=== PATIENT | male | born 1975 | race African-American/Black ===

== ENCOUNTER 2017-06-14 13:45 | Inpatient (IN) | payer OTHER ==
[2017-06-14 14:48] VITALS: BMI 21.7
[2017-06-14] MEDS ORDERED: MENTHOL/PHENOL 1 EACH UD MM PRN (15:19)
[2017-06-14] MEDS ORDERED: P-EPHED 60MG/TRIPROLIDI 2.5MG TABLET PO PRN (15:19)
[2017-06-14] MEDS ORDERED: MAG HYDROX/AL HYDROX/SIMETH 30 ML UNIT-DOSE CUP PO PRN (15:19)
[2017-06-14] MEDS ORDERED: IBUPROFEN 400 MG TABLET (FP) PO PRN (15:19)
[2017-06-14] MEDS ORDERED: LOPERAMIDE HCL 2 MG CAPSULE PO PRN (15:19)
[2017-06-14] MEDS ORDERED: guaiFENesin/D-METHORPHAN HB 10 ML UNIT-DOSE CUPS PO PRN (15:19)
[2017-06-14] MEDS ORDERED: MAGNESIUM HYDROX 2400MG/30ML ORAL SUSPENSION 30 ML CUP PO PRN (15:19)
[2017-06-14] MEDS ORDERED: MAGNESIUM CITRATE 300 ML BOTTLE PO PRN (15:19)
--- NOTE | 2017-06-14 15:21 | HP ---
JULIEN GARCIA Rehab Assess/Revision - Admission History Admitted to Rehab from: [facility] Date of Admission to Rehab: 06/14/17 - Vital signs Vital Signs: Vital Signs Period Temp Pulse Resp BP Sys/Riojas Pulse Ox Last 24 Hr 97.7 F-97.7 F 70-70 18-18 130-130/70-70 - Findings Detox History & Physical reviewed: Yes Concur with findings: Yes Inpatient Rehab Admission - Initial Determination Are CD services needed?: Yes Free of communicable disease: Yes Not in need of hospitalization: Yes - Rehab Admission Criteria Previous failed treatment: Yes Poor recovery environment: Yes
[2017-06-14] MEDS: THIAMINE HCL 100 MG TABLET (FP) PO SCH (21:15)
[2017-06-14] MEDS: BACITRACIN 15 GM TUBE TOPICAL OINTMENT TP SCH (21:15)
[2017-06-14] MEDS: SULFAMETHOXAZOLE/TRIMETHOPRIM 800MG/160MG D.S. TABLET PO SCH (21:15)
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
[2017-06-15] MEDS: BACITRACIN 15 GM TUBE TOPICAL OINTMENT TP SCH ×2 (10:07→21:14)
[2017-06-15] MEDS: SULFAMETHOXAZOLE/TRIMETHOPRIM 800MG/160MG D.S. TABLET PO SCH ×2 (10:07→21:14)
[2017-06-15] MEDS: PRENATAL VITAMINS W/ FOLIC ACID TABLET (FP) PO SCH (10:08)
[2017-06-15] MEDS: NICOTINE 21 MG/24 HOURS TOPICAL PATCH TD SCH (10:08)
[2017-06-15] MEDS: NICOTINE POLACRILEX 4 MG GUM BUC PRN (10:08)
[2017-06-15] MEDS: traZODone HCL 50 MG TABLET (FP) PO SCH (21:14)
[2017-06-15] MEDS: THIAMINE HCL 100 MG TABLET (FP) PO SCH (21:14)
[2017-06-16] MEDS: BACITRACIN 15 GM TUBE TOPICAL OINTMENT TP SCH ×2 (09:50→21:03)
[2017-06-16] MEDS: PRENATAL VITAMINS W/ FOLIC ACID TABLET (FP) PO SCH (09:50)
[2017-06-16] MEDS: SULFAMETHOXAZOLE/TRIMETHOPRIM 800MG/160MG D.S. TABLET PO SCH ×2 (09:50→21:02)
[2017-06-16] MEDS: NICOTINE POLACRILEX 4 MG GUM BUC PRN ×3 (09:51→20:03)
[2017-06-16] MEDS: NICOTINE 21 MG/24 HOURS TOPICAL PATCH TD SCH (09:51)
[2017-06-16] MEDS: traZODone HCL 50 MG TABLET (FP) PO SCH (21:02)
[2017-06-16] MEDS: THIAMINE HCL 100 MG TABLET (FP) PO SCH (21:03)
[2017-06-17] MEDS: SULFAMETHOXAZOLE/TRIMETHOPRIM 800MG/160MG D.S. TABLET PO SCH ×2 (09:43→21:05)
[2017-06-17] MEDS: PRENATAL VITAMINS W/ FOLIC ACID TABLET (FP) PO SCH (09:43)
[2017-06-17] MEDS: NICOTINE POLACRILEX 4 MG GUM BUC PRN (09:44)
[2017-06-17] MEDS: BACITRACIN 15 GM TUBE TOPICAL OINTMENT TP SCH ×2 (09:44→21:06)
[2017-06-17] MEDS: NICOTINE 21 MG/24 HOURS TOPICAL PATCH TD SCH (09:44)
--- NOTE | 2017-06-17 13:13 | PN ---
Psychiatric Progress Note Vital Signs: Vital Signs Period Temp Pulse Resp BP Sys/Riojas Pulse Ox Last 24 Hr 98.5 F 60 18-20 112/66 Date of Session: 06/17/17 Chief Complaint:: Anxiety HPI: Patient addressing Alcohol, Cannabis Dependence comorbid with Nicotine Dependence, Posttraumatic Stress Disorder and Subtace-Induced Sleep Disorder ROS: Start Vistaril 50 mg po Q 4hrs prn for anxiety Current Medications: Active Medications Generic Name Dose Route Start Last Admin Trade Name Freq PRN Reason Stop Dose Admin Acetaminophen 650 mg 06/14/17 15:19 Tylenol - PO Q4H PRN FEVER OR PAIN Al Hydroxide/Mg Hydroxide 30 ml 06/14/17 15:19 Mylanta Oral Suspension - PO Q6H PRN DYSPEPSIA Bacitracin 1 applic 06/14/17 22:00 06/17/17 09:44 Bacitracin - TP 1 applic BID QUINTEN Administration Eucalyptus/Menthol/Phenol/Sorbitol 1 each 06/14/17 15:19 Cepastat Lozenge - MM Q4H PRN SORE THROAT Guaifenesin 10 ml 06/14/17 15:19 Robitussin Dm - PO Q6H PRN COUGH Hydroxyzine Pamoate 50 mg 06/17/17 13:04 Vistaril - PO Q4H PRN ANXIETY Ibuprofen 400 mg 06/14/17 15:19 Motrin - PO Q6H PRN PAIN Loperamide HCl 4 mg 06/14/17 15:19 Imodium - PO Q6H PRN DIARRHEA Magnesium Hydroxide 30 ml 06/14/17 15:19 Milk Of Magnesia - PO DAILY PRN CONSTIPATION Nicotine 21 mg 06/15/17 10:00 06/17/17 09:44 Nicoderm Patch - TD Not Given DAILY QUINTEN Nicotine Polacrilex 4 mg 06/14/17 15:19 06/16/17 20:03 Nicorette Gum - BUC 4 mg Q2H PRN Administration NICOTINE REPLACEMENT RX Multivit/Folic Acid/Iron 1 tab 06/15/17 10:00 06/16/17 09:50 Vitamins (Sjr) - PO 1 tab DAILY QUINTEN Administration Pseudoephedrine/Triprolidine 1 combo 06/14/17 15:19 Actifed - PO TID PRN NASAL CONGESTION Thiamine HCl 100 mg 06/14/17 22:00 06/16/17 21:03 Vitamin B1 - PO 100 mg HS QUINTEN Administration Trazodone HCl 50 mg 06/15/17 22:00 06/16/17 21:02 Desyrel - PO 50 mg HS QUINTEN Administration Trimethoprim/Sulfamethoxazole 1 each 06/14/17 22:00 06/16/17 21:02 Bactrim Ds - PO 1 each BID QUINTEN Administration Current Side Effect: No Lab tests ordered: Yes Lab tests reviewed: Yes Provider note:: Patients reports experiencing anxiety. Told zahida that he has been feeling very anxious and needs something for it. Discussed anxiolytic properties in addition to advrse-effects of Vistaril with patient and he agreed to try it Total face to face time:: 25 Mental Status Exam - Mental Status Exam Alert and Oriented to: Time, Place, Person Cognitive Function: Fair Patient Appearance: Well Groomed Mood: Anxious Affect: Appropriate Patient Behavior: Cooperative Speech Pattern: Clear Voice Loudness: Normal Thought Process: Intact, Goal Oriented Thought Disorder: Not Present Hallucinations: Denies Suicidal Ideation: Denies Homicidal Ideation: Denies Insight/Judgement: Fair Sleep: Fair Appetite: Good Muscle strength/Tone: Normal Gait/Station: Normal Psychiatric Treatment Plan - Problem List (1) Nicotine dependence Current Visit: No Qualifiers: Nicotine product type: cigarettes Substance use status: uncomplicated Qualified Code(s): F17.210 - Nicotine dependence, cigarettes, uncomplicated (2) Alcohol dependence Current Visit: Yes (3) Cannabis dependence Current Visit: Yes (4) PTSD (post-traumatic stress disorder) Current Visit: Yes (5) Substance-induced sleep disorder Current Visit: Yes (6) Substance-induced anxiety disorder Current Visit: Yes Initial treatment plan: 1) Start Vistaril 50 mg po Q 4hrs prn for anxiety. 2) Monitor progres
[2017-06-17] MEDS: THIAMINE HCL 100 MG TABLET (FP) PO SCH (21:05)
[2017-06-17] MEDS: traZODone HCL 50 MG TABLET (FP) PO SCH (21:05)
[2017-06-18] MEDS: NICOTINE 21 MG/24 HOURS TOPICAL PATCH TD SCH (09:38)
[2017-06-18] MEDS: PRENATAL VITAMINS W/ FOLIC ACID TABLET (FP) PO SCH (09:38)
[2017-06-18] MEDS: BACITRACIN 15 GM TUBE TOPICAL OINTMENT TP SCH ×2 (09:38→21:24)
[2017-06-18] MEDS: SULFAMETHOXAZOLE/TRIMETHOPRIM 800MG/160MG D.S. TABLET PO SCH ×2 (09:38→21:16)
[2017-06-18] MEDS: NICOTINE POLACRILEX 4 MG GUM BUC PRN (09:38)
[2017-06-18] MEDS: traZODone HCL 50 MG TABLET (FP) PO SCH (21:16)
[2017-06-18] MEDS: THIAMINE HCL 100 MG TABLET (FP) PO SCH (21:16)
[2017-06-19] MEDS: BACITRACIN 15 GM TUBE TOPICAL OINTMENT TP SCH ×2 (09:54→21:07)
[2017-06-19] MEDS: PRENATAL VITAMINS W/ FOLIC ACID TABLET (FP) PO SCH (09:54)
[2017-06-19] MEDS: SULFAMETHOXAZOLE/TRIMETHOPRIM 800MG/160MG D.S. TABLET PO SCH ×2 (09:54→21:07)
[2017-06-19] MEDS: NICOTINE POLACRILEX 4 MG GUM BUC PRN ×2 (09:55→13:34)
[2017-06-19] MEDS: NICOTINE 21 MG/24 HOURS TOPICAL PATCH TD SCH (09:55)
[2017-06-19] MEDS: TOLNAFTATE 1% CREAM 15 GM TUBE TP SCH ×2 (13:33→21:08)
[2017-06-19] MEDS: ACETAMINOPHEN 325 MG TABLET (FP) PO PRN (17:04)
[2017-06-19] MEDS: THIAMINE HCL 100 MG TABLET (FP) PO SCH (21:07)
[2017-06-19] MEDS: traZODone HCL 50 MG TABLET (FP) PO SCH (21:07)
[2017-06-20] MEDS: BACITRACIN 15 GM TUBE TOPICAL OINTMENT TP SCH ×2 (09:41→21:07)
[2017-06-20] MEDS: PRENATAL VITAMINS W/ FOLIC ACID TABLET (FP) PO SCH (09:42)
[2017-06-20] MEDS: TOLNAFTATE 1% CREAM 15 GM TUBE TP SCH ×2 (09:42→21:07)
[2017-06-20] MEDS: NICOTINE 21 MG/24 HOURS TOPICAL PATCH TD SCH (09:42)
[2017-06-20] MEDS: SULFAMETHOXAZOLE/TRIMETHOPRIM 800MG/160MG D.S. TABLET PO SCH ×2 (09:42→21:06)
[2017-06-20] MEDS: THIAMINE HCL 100 MG TABLET (FP) PO SCH (21:06)
[2017-06-20] MEDS: traZODone HCL 50 MG TABLET (FP) PO SCH (21:06)
[2017-06-21] MEDS: BACITRACIN 15 GM TUBE TOPICAL OINTMENT TP SCH ×2 (09:38→21:48)
[2017-06-21] MEDS: NICOTINE 21 MG/24 HOURS TOPICAL PATCH TD SCH (09:38)
[2017-06-21] MEDS: PRENATAL VITAMINS W/ FOLIC ACID TABLET (FP) PO SCH (09:38)
[2017-06-21] MEDS: SULFAMETHOXAZOLE/TRIMETHOPRIM 800MG/160MG D.S. TABLET PO SCH ×2 (09:38→21:48)
[2017-06-21] MEDS: TOLNAFTATE 1% CREAM 15 GM TUBE TP SCH ×2 (09:39→21:48)
[2017-06-21] MEDS: traZODone HCL 50 MG TABLET (FP) PO SCH (21:48)
[2017-06-21] MEDS: THIAMINE HCL 100 MG TABLET (FP) PO SCH (21:48)
[2017-06-22] MEDS: SULFAMETHOXAZOLE/TRIMETHOPRIM 800MG/160MG D.S. TABLET PO SCH ×2 (09:40→21:17)
[2017-06-22] MEDS: PRENATAL VITAMINS W/ FOLIC ACID TABLET (FP) PO SCH (09:40)
[2017-06-22] MEDS: BACITRACIN 15 GM TUBE TOPICAL OINTMENT TP SCH ×2 (09:41→21:18)
[2017-06-22] MEDS: NICOTINE 21 MG/24 HOURS TOPICAL PATCH TD SCH (09:42)
[2017-06-22] MEDS: TOLNAFTATE 1% CREAM 15 GM TUBE TP SCH ×2 (09:43→21:16)
--- NOTE | 2017-06-22 11:33 | PN ---
S Progress Note (SOAP) Subjective: c/o irritation and oozing over chest wall boil Objective: 06/22/17 11:31 Vital Signs 06/22/17 06:51 Temperature 98.0 F Pulse Rate 59 L Respiratory 18 Rate Blood Pressure 109/64 no erythema, no abscess slight discoloration over area of boil, non tender Assessment: 06/22/17 11:32 boil healing chest wall Plan: d/c antibiotics, bacitracin and daily dry dressings to healing wound no infection noted
[2017-06-22] MEDS: COLLOIDAL OATMEAL 1 BAR EACH TP PRN (11:38)
[2017-06-22] MEDS: NICOTINE POLACRILEX 4 MG GUM BUC PRN (18:51)
[2017-06-22] MEDS: traZODone HCL 50 MG TABLET (FP) PO SCH (21:17)
[2017-06-22] MEDS: THIAMINE HCL 100 MG TABLET (FP) PO SCH (21:17)
[2017-06-23] MEDS: COLLOIDAL OATMEAL 1 BAR EACH TP PRN (09:41)
[2017-06-23] MEDS: NICOTINE POLACRILEX 4 MG GUM BUC PRN (09:42)
[2017-06-23] MEDS: PRENATAL VITAMINS W/ FOLIC ACID TABLET (FP) PO SCH (09:43)
[2017-06-23] MEDS: BACITRACIN 15 GM TUBE TOPICAL OINTMENT TP SCH ×2 (09:43→21:03)
[2017-06-23] MEDS: NICOTINE 21 MG/24 HOURS TOPICAL PATCH TD SCH (09:43)
[2017-06-23] MEDS: SULFAMETHOXAZOLE/TRIMETHOPRIM 800MG/160MG D.S. TABLET PO SCH ×2 (09:43→21:02)
[2017-06-23] MEDS: TOLNAFTATE 1% CREAM 15 GM TUBE TP SCH ×2 (10:26→21:03)
[2017-06-23] MEDS: traZODone HCL 50 MG TABLET (FP) PO SCH (21:02)
[2017-06-23] MEDS: THIAMINE HCL 100 MG TABLET (FP) PO SCH (21:02)
[2017-06-24] MEDS: PRENATAL VITAMINS W/ FOLIC ACID TABLET (FP) PO SCH (09:46)
[2017-06-24] MEDS: SULFAMETHOXAZOLE/TRIMETHOPRIM 800MG/160MG D.S. TABLET PO SCH ×2 (09:47→21:02)
[2017-06-24] MEDS: BACITRACIN 15 GM TUBE TOPICAL OINTMENT TP SCH ×2 (09:47→21:03)
[2017-06-24] MEDS: NICOTINE 21 MG/24 HOURS TOPICAL PATCH TD SCH (09:47)
[2017-06-24] MEDS: TOLNAFTATE 1% CREAM 15 GM TUBE TP SCH ×2 (10:12→21:06)
[2017-06-24] MEDS: hydrOXYzine PAMOATE 50 MG CAPSULE (FP) PO PRN ×2 (13:57→21:04)
[2017-06-24] MEDS: ACETAMINOPHEN 325 MG TABLET (FP) PO PRN (13:57)
[2017-06-24] MEDS: THIAMINE HCL 100 MG TABLET (FP) PO SCH (21:02)
[2017-06-24] MEDS: traZODone HCL 50 MG TABLET (FP) PO SCH (21:02)
[2017-06-25] MEDS: BACITRACIN 15 GM TUBE TOPICAL OINTMENT TP SCH ×2 (09:40→21:09)
[2017-06-25] MEDS: SULFAMETHOXAZOLE/TRIMETHOPRIM 800MG/160MG D.S. TABLET PO SCH ×2 (09:40→21:08)
[2017-06-25] MEDS: PRENATAL VITAMINS W/ FOLIC ACID TABLET (FP) PO SCH (09:40)
[2017-06-25] MEDS: NICOTINE 21 MG/24 HOURS TOPICAL PATCH TD SCH (09:40)
[2017-06-25] MEDS: TOLNAFTATE 1% CREAM 15 GM TUBE TP SCH ×2 (09:41→21:08)
[2017-06-25] MEDS: traZODone HCL 50 MG TABLET (FP) PO SCH (21:08)
[2017-06-25] MEDS: THIAMINE HCL 100 MG TABLET (FP) PO SCH (21:08)
[2017-06-25] MEDS: COLLOIDAL OATMEAL 1 BAR EACH TP PRN (21:09)
[2017-06-26] MEDS: TOLNAFTATE 1% CREAM 15 GM TUBE TP SCH ×2 (09:30→21:06)
[2017-06-26] MEDS: PRENATAL VITAMINS W/ FOLIC ACID TABLET (FP) PO SCH (09:30)
[2017-06-26] MEDS: BACITRACIN 15 GM TUBE TOPICAL OINTMENT TP SCH ×2 (09:30→21:08)
[2017-06-26] MEDS: NICOTINE 21 MG/24 HOURS TOPICAL PATCH TD SCH (09:30)
[2017-06-26] MEDS: SULFAMETHOXAZOLE/TRIMETHOPRIM 800MG/160MG D.S. TABLET PO SCH (09:30)
[2017-06-26] MEDS: NICOTINE POLACRILEX 4 MG GUM BUC PRN (11:01)
[2017-06-26] MEDS: ACETAMINOPHEN 325 MG TABLET (FP) PO PRN ×2 (14:18→18:24)
[2017-06-26] MEDS: traZODone HCL 50 MG TABLET (FP) PO SCH (21:07)
[2017-06-26] MEDS: THIAMINE HCL 100 MG TABLET (FP) PO SCH (21:08)
[2017-06-27] MEDS: PRENATAL VITAMINS W/ FOLIC ACID TABLET (FP) PO SCH (09:22)
[2017-06-27] MEDS: TOLNAFTATE 1% CREAM 15 GM TUBE TP SCH ×2 (09:22→21:09)
[2017-06-27] MEDS: BACITRACIN 15 GM TUBE TOPICAL OINTMENT TP SCH ×2 (09:22→21:09)
[2017-06-27] MEDS: NICOTINE POLACRILEX 4 MG GUM BUC PRN (09:23)
[2017-06-27] MEDS: NICOTINE 21 MG/24 HOURS TOPICAL PATCH TD SCH (09:23)
[2017-06-27] MEDS: COLLOIDAL OATMEAL 1 BAR EACH TP PRN (09:25)
[2017-06-27] MEDS: ACETAMINOPHEN 325 MG TABLET (FP) PO PRN (19:17)
[2017-06-27] MEDS: THIAMINE HCL 100 MG TABLET (FP) PO SCH (21:09)
[2017-06-27] MEDS: traZODone HCL 50 MG TABLET (FP) PO SCH (21:09)
[2017-06-28] MEDS: ACETAMINOPHEN 325 MG TABLET (FP) PO PRN (06:51)
[2017-06-28] MEDS: PRENATAL VITAMINS W/ FOLIC ACID TABLET (FP) PO SCH (09:26)
[2017-06-28] MEDS: TOLNAFTATE 1% CREAM 15 GM TUBE TP SCH ×2 (09:26→21:34)
[2017-06-28] MEDS: BACITRACIN 15 GM TUBE TOPICAL OINTMENT TP SCH ×2 (09:28→21:34)
[2017-06-28] MEDS: NICOTINE 21 MG/24 HOURS TOPICAL PATCH TD SCH (09:28)
[2017-06-28] MEDS: THIAMINE HCL 100 MG TABLET (FP) PO SCH (21:32)
[2017-06-28] MEDS: traZODone HCL 50 MG TABLET (FP) PO SCH (21:32)
[2017-06-28] MEDS: hydrOXYzine PAMOATE 50 MG CAPSULE (FP) PO PRN (21:33)
[2017-06-29] MEDS: ACETAMINOPHEN 325 MG TABLET (FP) PO PRN (06:10)
[2017-06-29] MEDS: COLLOIDAL OATMEAL 1 BAR EACH TP PRN (06:10)
--- NOTE | 2017-06-29 06:29 | PN ---
Psychiatric Progress Note Vital Signs: Vital Signs Period Temp Pulse Resp BP Sys/Riojas Pulse Ox Last 24 Hr 98.0 F 63 18 135/78 Date of Session: 06/29/17 Chief Complaint:: Discharge Note HPI: Patient addressing Alcohol and Cannabis Dependence comorbid with Nicotine Dependence, Posttraumatic Stress Disorder and Substance-induced Sleep Disorder Current Medications: Active Medications Generic Name Dose Route Start Last Admin Trade Name Freq PRN Reason Stop Dose Admin Acetaminophen 650 mg 06/14/17 15:19 06/29/17 06:10 Tylenol - PO 650 mg Q4H PRN Administration FEVER OR PAIN Al Hydroxide/Mg Hydroxide 30 ml 06/14/17 15:19 06/17/17 19:16 Mylanta Oral Suspension - PO 30 ml Q6H PRN Administration DYSPEPSIA Bacitracin 1 applic 06/14/17 22:00 06/28/17 21:34 Bacitracin - TP Not Given BID QUINTEN Colloidal Oatmeal 1 applic 06/18/17 16:40 06/29/17 06:10 Aveeno Soap - TP 1 bar DAILY PRN Administration HYGEINE Eucalyptus/Menthol/Phenol/Sorbitol 1 each 06/14/17 15:19 Cepastat Lozenge - MM Q4H PRN SORE THROAT Guaifenesin 10 ml 06/14/17 15:19 Robitussin Dm - PO Q6H PRN COUGH Hydroxyzine Pamoate 50 mg 06/17/17 13:04 06/28/17 21:33 Vistaril - PO 50 mg Q4H PRN Administration ANXIETY Ibuprofen 400 mg 06/14/17 15:19 Motrin - PO Q6H PRN PAIN Loperamide HCl 4 mg 06/14/17 15:19 Imodium - PO Q6H PRN DIARRHEA Magnesium Hydroxide 30 ml 06/14/17 15:19 Milk Of Magnesia - PO DAILY PRN CONSTIPATION Nicotine 21 mg 06/15/17 10:00 06/28/17 09:28 Nicoderm Patch - TD Not Given DAILY QUINTEN Nicotine Polacrilex 4 mg 06/14/17 15:19 06/27/17 09:23 Nicorette Gum - BUC 4 mg Q2H PRN Administration NICOTINE REPLACEMENT RX Multivit/Folic Acid/Iron 1 tab 06/15/17 10:00 06/28/17 09:26 Vitamins (Sjr) - PO 1 tab DAILY QUINTEN Administration Pseudoephedrine/Triprolidine 1 combo 06/14/17 15:19 Actifed - PO TID PRN NASAL CONGESTION Thiamine HCl 100 mg 06/14/17 22:00 06/28/17 21:32 Vitamin B1 - PO 100 mg HS QUINTEN Administration Tolnaftate 1 applic 06/19/17 12:45 06/28/17 21:34 Tinactin 1% Cream - TP Not Given BID QUINTEN Trazodone HCl 50 mg 06/15/17 22:00 06/28/17 21:32 Desyrel - PO 50 mg HS QUINTEN Administration Current Side Effect: No Lab tests ordered: Yes Lab tests reviewed: Yes Provider note:: Patient has completed this program today. He has met his treatment goals and will continue to address his issues in retirement residential treatment at [facility]. Told insurance underwriter that from his participation in this program, he has learned the importance of establising a sober support network in order to maintain abstinence. He responded well to Trazadone 50 mg po HS for insomnia. Script for 30 days supply of that medication will be electronically transmitted to [facility] at [address] [place] [address]. He is stable for discharge today Total face to face time:: 35 Mental Status Exam - Mental Status Exam Alert and Oriented to: Time, Place, Person Cognitive Function: Fair Patient Appearance: Well Groomed Mood: Hopeful, Euthymic Affect: Appropriate Patient Behavior: Cooperative Speech Pattern: Clear Voice Loudness: Normal Thought Process: Intact, Goal Oriented Thought Disorder: Not Present Hallucinations: Denies Suicidal Ideation: Denies Homicidal Ideation: Denies Insight/Judgement: Fair Appetite: Good Muscle strength/Tone: Normal Gait/Station: Normal Psychiatric Treatment Plan - Problem List (1) Nicotine dependence Current Visit: No Qualifiers: Nicotine product type: cigarettes Substance use status: uncomplicated Qualified Code(s): F17.210 - Nicotine dependence, cigarettes, uncomplicated (2) Alcohol dependence Current Visit: Yes (3) Cannabis dependence Current Visit: Yes (4) PTSD (post-traumatic stress disorder) Current Visit: Yes (5) Substance-induced sleep disorder Current Visit: Yes Initial treatment plan: Patient is discharged today and referred to [facility] for service inspector residential treatment
[2017-06-29 07:16] VITALS: BP 111/74; PULSE 72; TEMP 98.4
[2017-06-29] MEDS: PRENATAL VITAMINS W/ FOLIC ACID TABLET (FP) PO SCH (09:32)
[2017-06-29] MEDS: BACITRACIN 15 GM TUBE TOPICAL OINTMENT TP SCH (09:33)
[2017-06-29] MEDS: TOLNAFTATE 1% CREAM 15 GM TUBE TP SCH (09:33)
[2017-06-29] MEDS: NICOTINE 21 MG/24 HOURS TOPICAL PATCH TD SCH (09:33)
== END 2017-06-29 10:00 | disposition home or self-care (01) | DRG 772 ==
LOC: YASAS 13:45 → Y3W 13:48
PROVIDERS: ADMIT Psychiatry & Neurology Psychiatry; ATTEND Psychiatry & Neurology Psychiatry
PROC: HZ42ZZZ Group Counseling for Substance Abuse Treatment, Cognitive-Behavioral (ICD-10-PCS; principal; 2017-06-14)
DX: F10.20 Alcohol dependence, uncomplicated (principal); F12.20 Cannabis dependence, uncomplicated; F17.210 Nicotine dependence, cigarettes, uncomplicated; F43.10 Post-traumatic stress disorder, unspecified; F19.282 Other psychoactive substance dependence with psychoactive substance-induced sleep disorder